=== PATIENT | female | born 1970 | race Caucasian/White ===

== ENCOUNTER 2018-06-07 19:01 | Emergency (ER) | payer BC ==
[2018-06-07] MEDS: SOD CHLORIDE 0.9% 500 ML IV ×2 (19:10→19:35)
[2018-06-07 19:38] LABS: ADD MAN DIFF? NO
[2018-06-07 19:40] LABS: BASOPHIL # 0.1 10^3/ul (0.0-0.1); BASOPHILS % 0.5 % (0.0-2.0); EOSINOPHILS # 0.2 10^3/ul (0.0-0.5); EOSINOPHILS % 2.3 % (0.0-7.0); HEMATOCRIT 38.1 % (37.0-47.0); HEMOGLOBIN 12.7 g/dl (12.0-16.0); LYMPHOCYTES # 2.9 10^3/ul (0.8-2.9); LYMPHOCYTES % 29.7 % (15.0-51.0); MEAN CORPUSCULAR HEMOGLOBIN 31.1 pg (29.0-33.0); MEAN CORPUSCULAR HGB CONC 33.3 g/dl (32.0-37.0); MEAN CORPUSCULAR VOLUME 93.2 fl (82.0-101.0); MEAN PLATELET VOLUME 9.1 fl (7.4-10.4); MONOCYTE # 0.7 10^3/ul (0.3-0.9); MONOCYTES % 7.4 % (0.0-11.0); NEUTROPHIL # 5.7 10^3/ul (1.6-7.5); NEUTROPHILS % 59.9 % (39.0-77.0); PLATELET COUNT 424 10^3/UL (140-415); RED BLOOD COUNT 4.09 10^6/ul (4.20-5.40); RED CELL DISTRIBUTION WIDTH 12.6 % (11.5-14.5)
[2018-06-07 19:40] LABS: WHITE BLOOD COUNT 9.6 10^3/ul (4.8-10.8)
[2018-06-07 19:59] LABS: ANION GAP 12 (8-16); BLOOD UREA NITROGEN 18 mg/dl (7-20); CALCIUM 8.9 mg/dl (8.4-10.2); CARBON DIOXIDE 25 mmol/L (21-31); CHLORIDE 104 mmol/L (97-110); CREATININE 0.75 mg/dl (0.44-1.00); GLUCOSE 105 mg/dl (70-220); SODIUM 137 mmol/L (135-144)
[2018-06-07 20:11] LABS: TROPONIN-I < 0.010 ng/ml (0.000-0.120)
== END 2018-06-07 21:05 | disposition home or self-care (01) ==
LOC: E/R 19:01
DX: R55 Syncope and collapse (principal); R11.0 Nausea; D47.3 Essential (hemorrhagic) thrombocythemia; I10 Essential (primary) hypertension; E11.9 Type 2 diabetes mellitus without complications
CPT/HCPCS: 36415; 71045; 80048; 82962; 84484; 85025; 93005; 99285-25

== ENCOUNTER 2018-09-27 16:15 | Emergency (ER) | payer BC ==
[2018-09-27] MEDS: KETOROLAC 30 MG INJ IM (17:13)
== END 2018-09-27 18:00 | disposition home or self-care (01) ==
LOC: FTE 16:15
DX: M79.602 Pain in left arm (principal); I10 Essential (primary) hypertension; E11.9 Type 2 diabetes mellitus without complications; Z79.84 Long term (current) use of oral hypoglycemic drugs
CPT/HCPCS: 72040; 81025; 96372; 99284-25

== ENCOUNTER → 2019-01-07 | Outpatient (CLI) | payer BC ==
[2019-01-07 10:36] LABS: HEMOGLOBIN A1C 5.9 % (0-5.9)
== END | disposition home or self-care (01) ==
LOC: LAB 10:00
DX: E11.8 Type 2 diabetes mellitus with unspecified complications (principal)
CPT/HCPCS: 83036